=== PATIENT | male | born 1970 | race African-American/Black ===

== ENCOUNTER 2025-07-29 22:36 | Emergency (ER) | payer MEDICAID, OTHER ==
[~2025-07-29] VITALS: Ht 182.9 cm; Wt 114.0 kg
[2025-07-29 22:41] VITALS: TEMP 98.7; O2SAT 98
[2025-07-29 23:26] LABS: BASOPHILS % 1.2 % (0.0-2.0); EOSINOPHILS % 2.5 % (0.0-5.0); HEMATOCRIT. 37.3 % (42.0-52.0); HEMOGLOBIN. 12.1 g/dL (14.0-18.0); LYMPHOCYTES % 19.9 % (20.0-50.0); MEAN PLATELET VOLUME 10.3 fl (7.4-10.4); MONOCYTES % 6.5 % (2.0-8.0); NEUTROPHILS % 69.9 % (40.0-76.0); PLATELET 243 x1000/uL (130-400); RED BLOOD CELL COUNT 4.22 mill/uL (4.7-6.1); RED CELL DISTRIBUTION WIDTH 13.0 % (11.6-14.6)
[2025-07-29] MEDS: SODIUM CHLORIDE 0.9% 1,000 ML IV ONE (23:29)
[2025-07-29] MEDS: ONDANSETRON HCL 4MG/2ML INJ IV ONE (23:29)
[2025-07-29] MEDS: KETOROLAC 15MG/ML VIAL IV ONE (23:29)
[2025-07-29 23:38] LABS: CREATININE 1.3 mg/dL (0.6-1.3); UREA NITROGEN BLOOD 16 mg/dL (9-23)
[2025-07-29 23:39] LABS: PROTEIN TOTAL 7.2 g/dL (6.0-8.3)
[2025-07-29 23:40] LABS: ASPARTATE AMINOTRANSFERASE 40 IU/L (<34); BILIRUBIN DIRECT 0.1 mg/dL (<=3.0); BILIRUBIN TOTAL 0.3 mg/dL (0.1-1.0)
[2025-07-30 01:09] VITALS: BP 128/74; PULSE 67; RESP 13; O2SAT 98
[2025-07-30] MEDS ORDERED: IBUP-1455 MT (01:20)
[2025-07-30] MEDS ORDERED: ONDA4TAB50 MT (01:20)
== END 2025-07-30 01:36 | disposition home or self-care (01) ==
LOC: ER 22:36
DX: R10.A1 Flank pain, right side (principal)
CPT/HCPCS: 80076; 80048; 83690; 85025; 36415; 74176; 76705; 96361; 96374; 96375; 99285; J1885; J2405; J7030; Z7610